=== PATIENT | female | born 1975 | race Caucasian/White ===

== ENCOUNTER 2016-07-05 11:38 | Emergency (ER) | payer SELFPAY ==
[~2016-07-05] VITALS: Ht 162.6 cm; Wt 82.6 kg
[~2016-07-05 11:38] MED LIST: GLUC1000 PO; LISI2.5T55 PO
[2016-07-05 11:42] VITALS: BP 158/106; PULSE 86; RESP 16; TEMP 98.4; O2SAT 99
[2016-07-05] MEDS ORDERED: METF1000 PO (11:57)
--- NOTE | 2016-07-05 13:06 | PD ---
HPI Chief Complaint: Respiratory Symptoms Time Seen by Provider: 12:55 Travel History International Travel<30 days: No Contact w/Intl Traveler<30days: No Traveled to known affect area: No History of Present Illness HPI 41-year-old female complains of coughing shortness of breath. Patient has history asthma. Patient states the cough started about 10 days ago. Patient states the shortness of breath started 3 days ago. Patient states the cough is persistent and dry cough. Patient has nausea but no vomiting or diarrhea. Patient denies any fever chills. Patient states that she used inhaler once in a while. PFSH Past Medical History Asthma: Yes Diabetes: Yes (Type 2) Patient Takes Glucophage: Yes Diminished Hearing: No Respiratory: Yes (asthma) Tetanus Vaccination: < 5 Years Influenza Vaccination: No ?: Not LMP: 06/18/16 Past Surgical History Section: Yes Cholecystectomy: Yes Social History Alcohol Use: Yes (Rare) Tobacco Use: No Substance Use: No Allergies-Medications (Allergen,Severity, Reaction): Coded Allergies: Codeine (Verified Allergy, Severe, Itching, 07/05/16) Latex (Verified Allergy, Severe, Itching, 07/05/16) Aspirin (Verified Adverse Reaction, Severe, Irr. HR, 07/05/16) Reported Meds & Prescriptions Reported Meds & Active Scripts Active Reported Metformin (Metformin HCl) 1,000 Mg Tab 1,000 Mg PO BIDPC With meals Review of Systems General / Constitutional: No: Fever Eyes: No: Visual changes HENT: No: Headaches Cardiovascular: No: Chest Pain or Discomfort Respiratory: Positive: Cough, Shortness of Breath Gastrointestinal: No: Abdominal Pain Genitourinary: No: Dysuria Musculoskeletal: No: Pain Skin: No Rash Neurologic: No: Weakness Psychiatric: No: Depression Endocrine: No: Polydipsia Hematologic/Lymphatic: No: Easy Bruising Physical Exam Narrative GENERAL: Well-nourished, well-developed patient. SKIN: Warm and dry. HEAD: Normocephalic. EYES: No scleral icterus. No injection or drainage. NECK: Supple, trachea midline. No JVD or lymphadenopathy. CARDIOVASCULAR: Regular rate and rhythm without murmurs, gallops, or rubs. RESPIRATORY: Breath sounds equal bilaterally. No accessory muscle use. GASTROINTESTINAL: Abdomen soft, non-tender, nondistended. MUSCULOSKELETAL: No cyanosis, or edema. BACK: Nontender without obvious deformity. No CVA tenderness. Data Data Last Documented VS Vital Signs Date Time Temp Pulse Resp B/P Pulse Ox O2 Delivery O2 Flow Rate FiO2 07/05/16 11:55 16 99 Room Air 07/05/16 11:42 98.4 86 158/106 Orders Influenzae A/B Antigen (07/05/16 13:03) Chest, Single Ap (07/05/16 13:03) Ondansetron Odt (Zofran Odt) (07/05/16 13:15) MDM Medical Decision Making Medical Screen Exam Complete: Yes Emergency Medical Condition: Yes Interpretation(s) 14 00 p.m. Last Impressions Chest X-Ray 07/05/16 1303 Signed Impressions: Service Date/Time: Tuesday, July 05, 2016 13:28 - CONCLUSION: Normal examination. Shante Hamilton MD Influenza AB antigen negative Differential Diagnosis Differential diagnosis including viral syndrome, bronchitis, pneumonia, acute exacerbation of asthma. Narrative Course 41-year-old female complains of shortness of breath and coughing. History of asthma. Diagnosis Primary Impression: Bronchitis Additional Impression: Viral syndrome Patient Instructions: General Instructions Additional Instructions: Take medications as directed. Follow-up with personal physician. Return if worse. Med/Other Pt SpecificInfo: Prescription(s) given Scripts Benzonatate (Tessalon Perles)100 Mg [id number] Mg PO TID PRN (COUGH) #21 CAP Prov:Yousif Rodriguez MD 07/05/16 Azithromycin (Zithromax Z-Kelvin)250 Mg [id number] Mg PO DIRECTED #1 DSPK 500 MG (2 tabs) day 1, then 1 tab days 2-5. Prov:Yousif Rodriguez MD 07/05/16 Disposition: 01 DISCHARGE HOME Condition: Stable Yousif Rodriguez MD Jul 05, 2016 13:06
[2016-07-05] MEDS ORDERED: ONDANSETRON ODT 4 MG TAB PO ONE (13:15)
--- NOTE | 2016-07-05 13:50 | RADHPO ---
EXAM DATE/TIME: 07/05/2016 13:28 [facility] COMPARISON: CHEST PA & LAT, November 02, 2015, 9:18. INDICATIONS : Short of breath, nausea, weakness. MEDICAL HISTORY : asthma SURGICAL HISTORY : None. ENCOUNTER: Initial ACUITY: 3 days PAIN SCORE: 0/10 LOCATION: Bilateral chest FINDINGS: A single view of the chest demonstrates the lungs to be symmetrically aerated without evidence of mas s, infiltrate or effusion. The cardiomediastinal contours are unremarkable. Osseous structures are intact. CONCLUSION: Normal examination. Shante Hamilton MD on July 05, 2016 at 13:48 Board Certified Radiologist. This report was verified electronically.
[2016-07-05] MEDS ORDERED: ZITHTAB PO (14:08)
[2016-07-05] MEDS ORDERED: BENZ100 PO (14:08)
[2016-07-05 14:20] VITALS: BP 134/84
== END 2016-07-05 14:25 | disposition home or self-care (01) ==
LOC: PHED 11:38
DX: J40 Bronchitis, not specified as acute or chronic (principal); B34.9 Viral infection, unspecified
CPT/HCPCS: 71010; 87804; 99283